=== PATIENT | male | born 1950 | race Caucasian/White ===

== ENCOUNTER → 2023-01-30 | Outpatient (CLI) | payer MEDICARE ==
--- NOTE | 2023-01-30 12:43 | CTL ---
EXAMINATION TYPE: CT Low Dose Lung DATE OF EXAM ORDERED: 01/30/2023 HISTORY: 32-year-old male nicotine dependence, smoker with 57 pack-year history. Lung cancer screenin g CT DLP: 75.[address] CTDI: 2.0 mGy Automated exposure control for dose reduction was used. SCREENING VISIT: Baseline COMPARISON: None TECHNIQUE: Low dose computed tomography scan was performed through the chest with coronal and sagitta l reconstructions. CT DIAGNOSTIC QUALITY: Satisfactory FINDINGS: Heart normal size with trace anterior pericardial fluid. RCA and circumflex coronary artery calcifica tions. Mild atherosclerotic arch calcifications with bovine configuration to the aortic arch. Ectatic upper descending thoracic aorta 3.5 cm in mild aneurysm lower descending thoracic aorta 3.0 cm. Trace bilateral gynecomastia. No thoracic lymphadenopathy by CT size criteria. There is a smooth round 1.6 cm subpleural pulmonary nodule anteromedial left mid lung. Mild to modera te diffuse bronchial wall thickening. Emphysematous change. No consolidation or pleural effusion. Visualized upper abdomen shows no gross abnormality. Bones: There is DISH throughout the mid and lower thoracic spine. IMPRESSION: 1. Lung RADS Category 4B (very suspicious, >15% chance of malignancy). A 1.6 cm subpleural pulmonary nodule anteromedial left midlung on baseline screening. 2. COPD with minimal emphysema. Prominent component of chronic bronchitis. Recommend smoking cessatio n. 3. Mild aneurysm distal descending thoracic aorta at 3.[address] LUNG RAD AND CT CHEST RECOMMENDATION: Lung-Rad 4B or 4X Very Suspicious: Follow-up Chest CT with o r without contrast or PET/CT and/or tissue sampling. PET/CT may be used when there is a > 8 mm solid component. S Modifier (other clinically significant findings): None
--- NOTE | 2023-01-30 18:30 | CA ---
Exercise Stress Test Report Name: Zeferino Landry Exam Date: 01/30/2023 11:19 Exam Location: [place] Stress Ht (in): 69 Wt (lb): 150 BSA: 1.83 Ordering Phys: Betty Guerin DO Referring Phys: Bonnie Matta [facility] Technologist: Tanner Monreal Age: 72 Gender: M : 1950 Procedure CPT: Indications: R94.31 abn ekg ICD-10 Codes: Patient History: TOB (1.5PPD X 57YRS) Medications: TRILOGYINHALER, ALBUTEROL SULFATE INHALER Meds past 24 hrs: Pretest Chest Pain: STRESS TEST Aleksandr Protocol Exercise Duration (min:sec): 06:[address] Depressions (mm): Angina Score: Esqueda Score: Resting HR (bpm): 53 Peak HR (bpm): 104 Resting BP (mmHg): 152 / 83 Peak BP (mmHg): 187 / 70 MPHR: 147 Target HR: 125 % MPHR: 71 METS: 7.3 Total Dose: Peak Dose: Atropine: Double Product: 09436 BP Response: Stress Termination: Patient request Stress Symptoms: No chest pain or symptoms Stress Summary: ECG ANALYSIS Resting ECG: Stress ECG: CONCLUSIONS Exercise stress test Baseline heart rate 53 beats a minute, Baseline blood pressure 152/83 mmHg Normal heart and blood pressure response Average excess capacity of 6 minutes 7.3 METs achieved No ECG evidence for ischemia Occasional PVCs, left-sided Dr. Gregg Best MD (Electronically Signed) Final Date: 30 January 2023 18:29
== END | disposition home or self-care (01) ==
LOC: RADCTMAIN 10:27
PROVIDERS: ATTEND Family Medicine
DX: Z12.2 Encounter for screening for malignant neoplasm of respiratory organs (principal); I71.23 Aneurysm of the descending thoracic aorta, without rupture; F17.210 Nicotine dependence, cigarettes, uncomplicated; J43.9 Emphysema, unspecified; R91.1 Solitary pulmonary nodule; R94.31 Abnormal electrocardiogram [ECG] [EKG]
CPT/HCPCS: 71271; 93017

== ENCOUNTER → 2023-02-20 | Outpatient (CLI) | payer MEDICARE ==
--- NOTE | 2023-02-20 21:34 | PE ---
EXAMINATION TYPE: PET CT fusion skull to thigh DATE OF EXAM: 02/20/2023 CLINICAL INDICATION:Male, 72 years old with history of R91.1 PULMONARY NODULE, I71.40; TECHNIQUE: Following the intravenous administration of 10.9 mCi of F-18 FDG, whole body images are performed from the skull base to the midthigh. Images are reviewed on the computer in the coronal, a xial, and sagittal planes. Reconstructed rotating images are created on independent workstation and reviewed on the computer. A non-contrast CT is performed in conjunction with the PET scan. Glucose level at L5 mg/dL CT DLP: 349 mGycm, Automated exposure control for dose reduction was used. COMPARISON: CT 01/30/2023, PET/CT None, FINDINGS: Mediastinal SUV mean is 1.4. Hepatic parenchyma SUV mean is 2.0. SKULL BASE AND NECK: No suspicious radiotracer activity. CHEST, MEDIASTINUM, AND HILAR REGION: Anterior medial left upper lobe nodule measuring up to 17 mm ma x SUV 1.3. No additional abnormal areas of FDG activity identified ABDOMEN AND PELVIS: There is a single focus of radiotracer activity within the wall of the sigmoid colon series 3 image 1 77 Max SUV 13.0 MUSCULOSKELETAL STRUCTURES: No suspicious radiotracer activity. OTHER CT: Bilaterally aphakia. Atherosclerosis of the arterial vasculature in the coronary arteries. Mild bilateral clinical history. Evidence of chronic pancreatitis with calcifications. Affecting umbi lical hernia. Postsurgical changes of the prostate gland. Bilateral fat-containing inguinal hernias. Cervical vertebral bladder wall thickening likely secondary to chronic bladder outlet obstruction.. IMPRESSION: 1. Left upper lobe lingula nodule measuring 17 mm with FDG activity below background levels. Finding s could represent hypometabolic primary lung malignancy versus granulomatous change. Surveillance wit h CT imaging and consideration for tissue sibling is recommended. No additional evidence for malignan cy. 2. Focus of abnormal FDG activity within the sigmoid colon which could be physiologic, attention on follow-up imaging. Consider colonoscopy if not recently performed. 3. Prostatomegaly with evidence of chronic bladder outlet obstruction with bladder wall thickening.
== END | disposition home or self-care (01) ==
LOC: RADPETMAIN 08:16
PROVIDERS: ATTEND Family Medicine
DX: I71.40 Abdominal aortic aneurysm, without rupture, unspecified (principal); N40.0 Benign prostatic hyperplasia without lower urinary tract symptoms; N32.89 Other specified disorders of bladder; R91.1 Solitary pulmonary nodule
CPT/HCPCS: 78815; A9552

== ENCOUNTER → 2023-05-28 | Outpatient (CLI) | payer MEDICARE ==
--- NOTE | 2023-05-28 13:58 | CT ---
Exam: CT Chest without contrast. Date: 05/28/2023. Comparison: 01/30/2023, PET/CT on 02/20/2023. History: Follow-up for pulmonary nodule. Technique: CT examination of the chest was performed without contrast. Coronal and sagittal reformats were performed. CT dose lowering techniques were used, to include: automated exposure control, adjus tment for patient size, and/or use of iterative reconstruction. FINDINGS: Mediastinum and Ashleigh: There is no axillary, mediastinal or hilar lymphadenopathy. Pleural and Pericardial spaces: There are no pleural or pericardial effusions. Upper Abdomen: The visualized upper abdomen is unremarkable. Cardiovascular: There is mild vascular calcification aortic arch without evidence of aneurysmal dilat ion. Moderate patchy coronary artery calcifications are seen. Lung Parenchyma and Airways: 1.7 cm nodule in the lingular segment of the left upper lobe appears wel l-circumscribed and may have some fat density. The overall appearance is unchanged since the previous examination and this could potentially represent a hamartoma. However, follow-up in 6 months is mesha mmended. Bones: No fracture or aggressive osseous lesion. IMPRESSION: 1. Unchanged linear segmental nodule described above. This could potentially represent a hamartoma gi gordy the potential fat density, however not definitive. A follow-up in 6 months is recommended. 2. Coronary artery calcifications. 3. No acute findings.
== END | disposition home or self-care (01) ==
LOC: RADCTMAIN 12:17
PROVIDERS: ATTEND Internal Medicine Pulmonary Disease
DX: I25.10 Atherosclerotic heart disease of native coronary artery without angina pectoris (principal); R91.1 Solitary pulmonary nodule
CPT/HCPCS: 71250

== ENCOUNTER → 2024-01-14 | Outpatient (CLI) | payer MEDICARE ==
[2024-01-14 07:12] LABS: African American GFR (CKD) >90 (>60 ml/min/1.73 sqM); Blood Urea Nitrogen 14 mg/dL (9-20); Non-African American GFR(CKD) 90 (>60 ml/min/1.73 sqM)
--- NOTE | 2024-01-14 10:38 | CT ---
EXAMINATION TYPE: CT chest w con DATE OF EXAM: 01/14/2024 COMPARISON: 05/28/2023 HISTORY: Prior abn exams CT DLP: 291.5 mGycm Automated exposure control for dose reduction was used. TECHNIQUE: CT scan of the chest is performed with IV Contrast, patient injected with 100 mL of Isovue 300. MIP Images are created on CT scanner and reviewed. 3D reconstructed images are created on an independent workstation and reviewed. FINDINGS: LUNGS: 1.7 cm nodule in the lingular segment of the left upper lobe appears well-circumscribed and ma y have some fat density. The overall appearance is unchanged since the previous examination and this could potentially represent a hamartoma. However, follow-up in 6 months is recommended. Stable 2 mm left upper lobe nodule. Underlying emphysematous changes. On image 50 series 4 there is a stable 3 mm right lower lobe subpleural nodule. MEDIASTINUM: There are no greater than 1 cm hilar or mediastinal lymph nodes. No pericardial effusi on is seen. OTHER: Bilateral mild gynecomastia. Left adrenal thickening consistent with benign adenoma or hyperp lasia. Atrophic and degenerative changes of the spine. IMPRESSION: 1. Stable 1.7 cm the left upper lobe and a 2 mm left upper lobe nodule unchanged from prior exam. Rec ommend continued 6 month follow-up. 2. COPD. Follow-up recommendations for incidental pulmonary nodules are per [employer] or [employer]. [facility], , 01/14/2024 10:35 AM
== END | disposition home or self-care (01) ==
LOC: RADCTMAIN 06:38
PROVIDERS: ATTEND Family Medicine
DX: J44.9 Chronic obstructive pulmonary disease, unspecified (principal); R91.8 Other nonspecific abnormal finding of lung field
CPT/HCPCS: 82565; 84520; 71260; 36415; Q9967